=== PATIENT | male | born 1945 | race Caucasian/White ===

== ENCOUNTER 2023-05-27 11:13 | Day surgery (SDC) | payer OTHER, MEDICAID ==
[~2023-05-27] VITALS: Ht 170.2 cm; Wt 61.2 kg
[2023-05-27] MEDS ORDERED: CEFAZOLIN 1 GM IVPB PREMIX 50 ML IV ONE (12:30)
[2023-05-27 13:01] VITALS: O2SAT 96
[2023-05-27] MEDS ORDERED: BUPIVACAINE /PF 0.25% 30 ML VIAL INJ ONE (13:03)
[2023-05-27] MEDS ORDERED: NEOSTIGMINE METHYLSULFATE 1 MG/ML, 10 ML VIAL ONE (13:03)
[2023-05-27] MEDS ORDERED: PROPOFOL 200MG/ 20ML VIAL (DIPRIVAN) IV ONE (13:03)
[2023-05-27] MEDS ORDERED: NS IRRIG SOLN 1000 ML IR ONE (13:03)
[2023-05-27] MEDS ORDERED: GLYCOPYRROLATE 0.2 MG/ML VIAL ONE (13:03)
[2023-05-27] MEDS ORDERED: SUCCINYLCHOLINE CHLORIDE 20 MG/ML(QUELICIN) ONE (13:03)
[2023-05-27] MEDS ORDERED: WATER FOR IRRIGATION,STERILE 1,000 ML IRRIG.SOLN IR ONE (13:03)
[2023-05-27] MEDS ORDERED: SEVOFLURANE 15 MIN GAS INH ONE (13:03)
[2023-05-27] MEDS ORDERED: ACETAMINOPHEN I.V. 1000 MG 100 ML IV ONE (13:43)
[2023-05-27] MEDS ORDERED: KETOROLAC TROMETHAMINE 30 MG VIAL IVP PRN (13:45)
[2023-05-27] MEDS ORDERED: IBUPROFEN 400 MG TABLET PO ONE (13:45)
[2023-05-27] MEDS ORDERED: ONDANSETRON HCL 4 MG/2 ML VIAL IVP PRN (13:45)
[2023-05-27] MEDS ORDERED: HYDROmorphone 1 MG/ML INJ. CARTRIDGE ONE (15:07)
[2023-05-27] MEDS: HYDROmorphone 1 MG/ML INJ. CARTRIDGE IVP PRN (15:08)
[2023-05-27 16:27] VITALS: BP_SYST 122; PULSE 86; RESP 17
== END 2023-05-27 18:40 | disposition home or self-care (01) ==
LOC: SDS 11:13 → SMU 11:17 → SDS 15:40
PROVIDERS: ATTEND Surgery
DX: K40.30 Unilateral inguinal hernia, with obstruction, without gangrene, not specified as recurrent (principal); I10 Essential (primary) hypertension; G20.A1 Parkinson's disease without dyskinesia, without mention of fluctuations; F32.A Depression, unspecified; K21.9 Gastro-esophageal reflux disease without esophagitis; E78.5 Hyperlipidemia, unspecified
CPT/HCPCS: 87081; 49507; C1781; J3490 ×2; J0690; J2704; J0330; J1170; J0131; J2710

== ENCOUNTER 2023-05-28 07:54 | Emergency (ER) | payer OTHER, MEDICAID ==
[~2023-05-28] VITALS: Ht 170.2 cm; Wt 61.2 kg
[2023-05-28 07:58] VITALS: BP_SYST 144; PULSE 97; RESP 16; TEMP 98.7; O2SAT 99
[2023-05-28 08:30] VITALS: BP_SYST 135; PULSE 96; RESP 16; TEMP 98.7; O2SAT 97
[2023-05-28 09:07] LABS: BILIRUBIN,URINE NEGATIVE (NEGATIVE); BLOOD, URINE NEGATIVE (NEGATIVE); CLARITY/URINE CLEAR (CLEAR); COLOR,URINE YELLOW (YELLOW); GLUCOSE,URINE NEGATIVE (NEGATIVE); KETONES,URINE TRACE (NEGATIVE); LEUKOCYTE ESTERASE ,URINE NEGATIVE (NEGATIVE); NITRITE, URINE NEGATIVE (NEGATIVE); PROTEIN URINE NEGATIVE (NEGATIVE); UROBILINOGEN,URINE 0.2 (0.2-1.0)
[2023-05-28 09:33] VITALS: BP_SYST 135; PULSE 96; RESP 16; TEMP 98.7; O2SAT 97
== END 2023-05-28 10:02 | disposition home or self-care (01) ==
LOC: SED 07:54
DX: R33.9 Retention of urine, unspecified (principal); Z79.899 Other long term (current) drug therapy
CPT/HCPCS: 81001; 81003; 99284